=== PATIENT | male | born 1985 | race American Indian/Alaskan Native ===

== ENCOUNTER 2016-09-01 20:57 | Emergency (ER) | payer OTHER ==
[2016-09-02] MEDS ORDERED: BOOSTRIX IM ONE (01:07)
--- NOTE | 2016-09-02 01:07 | Emergency Department Report ---
HPI - General Chief Complaint: Wound/Laceration Time Seen by Provider: 09/02/16 00:36 - HPI HPI: 30-year-old male presents today with a cut to the tip of his left middle finger that occurred while at work prior to arrival. Patient denies any pain or active bleeding at this time. Tetanus status is unknown. Denies numbness, weakness, paresthesias. Denies fever, chills, nausea, vomiting, chest pain, shortness of breath, abdominal pain. Patient states that he washed the wound with alcohol and placed Neosporin on it before dressing it. ED Past Medical Hx - Past Medical History Previous Medical History?: Yes Hx Asthma: Yes Additional medical history: liver transplant @ age 4 - Surgical History Past Surgical History?: Yes Hx Cholecystectomy: Yes Additional Surgical History: tracheotomy - Social History Smoking Status: Never Smoker Substance Use Type: None - Medications Home Medications: Home Medications Medication Instructions Recorded Confirmed Last Taken Type Ibuprofen [Motrin 800 MG tab] 800 mg PO Q8HR PRN #30 tablet 05/28/15 Unknown Rx ED Review of Systems ROS: Stated complaint: LT HAND MIDDLE FINGER LAC Other details as noted in HPI Constitutional: denies: chills, fever, malaise Eyes: denies: eye pain ENT: denies: ear pain, throat pain, congestion Respiratory: denies: cough, shortness of breath, wheezing Cardiovascular: denies: chest pain, palpitations Endocrine: no symptoms reported Gastrointestinal: denies: abdominal pain, nausea, vomiting Neurological: denies: headache, weakness, numbness, paresthesias Physical Exam - Physical Exam Vital Signs: Vital Signs 09/01/16 21:13 Temperature 98.1 F Pulse Rate 90 Respiratory 18 Rate Blood Pressure 116/74 O2 Sat by Pulse 97 Oximetry Physical Exam: GENERAL: The patient is well-developed and well-nourished. Patient is in NAD. HEAD: Normocephalic. Atraumatic. CHEST/LUNGS: Clear to auscultation throughout. HEART/CARDIOVASCULAR: Regular rate and rhythm. No murmurs, rubs or gallops. ABDOMEN: Abdomen is soft, nontender. Bowel sounds normoactive. No guarding or rebound tenderness. LEFT HAND: Full wrist and digit range of motion. 0.5 cm linear, superficial laceration noted over the tip of left middle finger. No active bleeding. Normal sensation. 2 point discrimination intact. Peripheral pulses intact. Capillary refill less than 2 seconds. NEURO: Alert and oriented x 3. Normal gait. ED Course Vital Signs 09/01/16 21:13 Temperature 98.1 F Pulse Rate 90 Respiratory 18 Rate Blood Pressure 116/74 O2 Sat by Pulse 97 Oximetry - Procedure Description Procedures done: His wound was copiously irrigated and cleaned with Betadine. The wound was then dressed. The wound appeared to be very superficial, therefore the wound was not closed. Patient tolerated the procedure well. Wound care instructions provided. ED Medical Decision Making - Lab Data Vital Signs 09/01/16 21:13 Temperature 98.1 F Pulse Rate 90 Respiratory 18 Rate Blood Pressure 116/74 O2 Sat by Pulse 97 Oximetry - Medical Decision Making 30-year-old male presents today with a superficial laceration to his left middle finger. The wound was copiously irrigated and cleaned. His tetanus status was updated today. Patient is in no acute distress at this time. He will be discharged home and is encouraged to follow up with a primary care provider. He is encouraged to return to the emergency room for any worsening symptoms. Critical care attestation.: If time is entered above; I have spent that time in minutes in the direct care of this critically ill patient, excluding procedure time. ED Disposition Clinical Impression: Vaccine for tetanus toxoid, Laceration Disposition: DISCHARGED TO HOME OR SELFCARE Is pt being admited?: No Does the pt Need Aspirin: No Condition: Stable Instructions: Laceration (ED) Additional Instructions: Follow-up with primary care provider. Return to the emergency department if symptoms worsen. Referrals: PRIMARY CARE [Primary Care Provider] - 3-5 Days [facility] [Outside] - 3-5 Days Forms: Work/School Release Form(ED) Time of Disposition: 01:39
[2016-09-02 01:49] VITALS: BP 120/72
== END 2016-09-02 01:56 | disposition home or self-care (01) ==
LOC: ED 20:57
DX: S61.213A Laceration without foreign body of left middle finger without damage to nail, initial encounter (principal); J45.909 Unspecified asthma, uncomplicated; Z91.040 Latex allergy status; Z88.6 Allergy status to analgesic agent; Z90.49 Acquired absence of other specified parts of digestive tract; W45.8XXA Other foreign body or object entering through skin, initial encounter; Y93.89 Activity, other specified; Y99.8 Other external cause status; Y92.89 Other specified places as the place of occurrence of the external cause
CPT/HCPCS: 90471; 90715